=== PATIENT | female | born 1970 | race Native Hawaiian/Other Pacific Islander ===

== ENCOUNTER 2020-06-10 10:22 | Emergency (ER) | payer OTHER ==
[~2020-06-10] VITALS: Ht 160 cm; Wt 113.4 kg
[2020-06-10 10:37] VITALS: TEMP 98.5
[2020-06-10 11:18] LABS: PLATELET COUNT 212 K/uL (152-353)
[2020-06-10 11:24] LABS: POTASSIUM 3.6 mmol/L (3.6-5.2); SODIUM 136 mmol/L (136-145)
[2020-06-10 11:29] LABS: PARTIAL THROMBOPLASTIN TIME 22.5 SECONDS (24.5-33.6)
[2020-06-10 13:37] VITALS: BP 142/74
== END 2020-06-10 13:37 | disposition home or self-care (01) ==
LOC: ED 10:22
PROVIDERS: Hospitalist
DX: E86.0 Dehydration (principal)
CPT/HCPCS: 80053; 81000; 82550; 82553; 83880; 84484; 85027; 85610; 85730; 93005; 96360; 99284